=== PATIENT | female | born 1995 | race Caucasian/White ===

== ENCOUNTER → 2017-10-27 | Outpatient (CLI) | payer BC | LOC: BICRAD 15:20 | PROVIDERS: ATTEND Nurse Practitioner Family | DX: M41.9 Scoliosis, unspecified (principal); M41.125 Adolescent idiopathic scoliosis, thoracolumbar region | CPT/HCPCS: 72081 ==

== ENCOUNTER 2019-12-14 08:34 | Outpatient (CLI) | payer OTHER ==
--- NOTE | 2019-12-14 09:00 | RAD ---
Exam: Scoliosis study: COMPARISON: 10/27/2017 FINDINGS: Again noted is severe S-shaped scoliosis. There is approximately 93 degrees scoliosis convex to the t o the right side at the mid thoracic vertebral body level. There is approximately 55 degrees levoscoliosis of the mid lumbar vertebral column level. These are slightly more prominent as for his degree of scoliosis when compared to the most recent prior study. IMPRESSION: Severe S-shaped scoliosis with probably very minimal increase in the degree of scoliosis from prior s tudy.
== END 2019-12-14 08:35 | disposition home or self-care (01) ==
LOC: BICRAD 08:34
PROVIDERS: ATTEND Family Medicine
DX: M41.124 Adolescent idiopathic scoliosis, thoracic region (principal)
CPT/HCPCS: 72081